=== PATIENT | female | born 1955 | race Hispanic/Latino ===

== ENCOUNTER → 2022-12-16 | Outpatient (CLI) | payer OTHER ==
[~2022-12-16] MED LIST: CALCIUM PO; CHOL500050 PO; CINNAMON PO; COQ10 PO; GLUCOSAMIN PO; L.AC1CAP6 PO; LORA10TA7 PO; PREMARIN PO; SIMV10TA97 PO; VITA-395 PO
[2022-12-16 11:23] LABS: BASOPHILS % (AUTO) 0.5 % (0.0-5.0); EOSINOPHILS % (AUTO) 3.3 % (0.0-8.0); HEMATOCRIT 39.6 % (36-48); LYMPHOCYTES % (AUTO) 35.2 % (21.0-51.0); MEAN CORPUSCULAR HEMOGLOBIN 30.3 pg (27.0-33.0); MEAN CORPUSCULAR HGB CONC 32.6 g/dL (32.0-36.0); MONOCYTES % (AUTO) 5.6 % (3.0-13.0); NEUTROPHILS % (AUTO) 55.2 % (40.0-77.0); PLATELET COUNT (AUTO) 270 K/uL (130-400); RED BLOOD CELL COUNT(AUTO) 4.26 MIL/uL (4.00-5.50); RED CELL DISTRIBUTION WIDTH 13.2 % (11.0-15.5); WHITE BLOOD COUNT (AUTO) 6.6 K/uL (4.8-10.8)
[2022-12-16 11:45] LABS: ALBUMIN 4.1 g/dL (3.5-5.0); CREATININE 0.7 mg/dL (0.5-1.5); POTASSIUM 3.7 mmol/L (3.5-5.1); THYROID STIMULATING HORMONE 0.82 uIU/mL (0.36-3.74); TOTAL PROTEIN, SERUM 7.5 g/dL (6.0-8.3)
== END | disposition home or self-care (01) ==
LOC: LAB 09:17
PROVIDERS: ATTEND Internal Medicine Cardiovascular Disease
DX: E78.5 Hyperlipidemia, unspecified (principal); R07.9 Chest pain, unspecified; R01.1 Cardiac murmur, unspecified
CPT/HCPCS: 36415; 80053; 80061; 83001; 83002; 84443; 85025

== ENCOUNTER → 2023-01-16 | Outpatient (CLI) | payer OTHER | END | disposition home or self-care (01) | LOC: SHCH 08:01 | PROVIDERS: ATTEND Internal Medicine Cardiovascular Disease | DX: R01.1 Cardiac murmur, unspecified (principal); I08.3 Combined rheumatic disorders of mitral, aortic and tricuspid valves; E78.5 Hyperlipidemia, unspecified | CPT/HCPCS: 93306 ==

== ENCOUNTER → 2023-01-22 | Outpatient (CLI) | payer OTHER | END | disposition home or self-care (01) | LOC: SHCH 09:18 | PROVIDERS: ATTEND Internal Medicine Cardiovascular Disease | DX: I65.23 Occlusion and stenosis of bilateral carotid arteries (principal) | CPT/HCPCS: 93880 ==

== ENCOUNTER → 2024-05-17 | Outpatient (CLI) | payer BC, MEDICARE ==
--- NOTE | 2024-05-17 16:42 | HMCIMG ---
SHOULDER COMP 2+VWS LT HISTORY: Left shoulder pain COMPARISON: None TECHNIQUE: 2 images of left shoulder were obtained. FINDINGS: There is no acute displaced fracture or dislocation. Degenerative changes are seen. IMPRESSION: 1. Findings as described above.
== END | disposition home or self-care (01) ==
LOC: RAH 15:15
PROVIDERS: ATTEND Physician Assistant
DX: M19.012 Primary osteoarthritis, left shoulder (principal); M25.512 Pain in left shoulder
CPT/HCPCS: 73030